=== PATIENT | male | born 1950 | race Caucasian/White ===

== ENCOUNTER 2017-04-10 10:05 | Observation (INO) | payer MEDICARE ==
[2017-04-10] VITALS (11 sets, daily range): BP systolic 118–181; BP diastolic 60–102; PULSE 72–96; RESP 16–20; TEMP 96.8–98.7; O2SAT 93–99
[~2017-04-10] VITALS: Ht 177.8 cm; Wt 102.3 kg
[2017-04-10] MEDS ORDERED: SODIUM CHLORIDE 0.9% FLUSH 10 ML FLUSH IVF PRN (10:30)
[2017-04-10] MEDS ORDERED: MORPHINE SULFATE 4 MG/ML INJ IV PUSH ONE (10:30)
[2017-04-10] MEDS ORDERED: ASPIRIN 81 MG CHEW TAB PO ONE (10:30)
[2017-04-10 10:38] LABS: AUTOMATED NEUTROPHIL # 3.5 TH/MM3 (1.8-7.7); BASOPHIL % 0.4 % (0.0-2.0); EOSINOPHIL # 0.1 TH/MM3 (0-0.4); EOSINOPHIL % 1.6 % (0.0-4.0); HEMATOCRIT 44.9 % (39.0-51.0); HEMOGLOBIN 15.7 GM/DL (13.0-17.0); LYMPH % 30.8 % (9.0-44.0); LYMPHOCYTE # 1.8 TH/MM3 (1.0-4.8); MEAN CELL VOLUME 89.2 FL (80.0-100.0); MEAN CORPUSCULAR HEMOGLOBIN 31.2 PG (27.0-34.0); MEAN CORPUSCULAR HGB CONC 34.9 % (32.0-36.0); MEAN PLATELET VOLUME 8.7 FL (7.0-11.0); MONO % 9.9 % (0.0-8.0); MONOCYTE # 0.6 TH/MM3 (0-0.9); NEUT % 57.3 % (16.0-70.0); PLATELET COUNT 153 TH/MM3 (150-450); RED BLOOD COUNT 5.03 MIL/MM3 (4.50-5.90); RED CELL DISTRIBUTION WIDTH 13.2 % (11.6-17.2)
[2017-04-10] MEDS: NITROGLYCERIN 0.4 MG SL 25 TABS/BTL SL SCH ×3 (10:40→11:12)
[2017-04-10 10:45] LABS: CHLORIDE 101 MEQ/L (98-107); SODIUM (NA) 137 MEQ/L (136-145)
[2017-04-10 10:48] LABS: BICARBONATE 27.3 MEQ/L (21.0-32.0); BLOOD UREA NITROGEN 20 MG/DL (7-18); CALCIUM 9.1 MG/DL (8.5-10.1); GLUCOSE,RANDOM 114 MG/DL (74-106); MAGNESIUM 1.8 MG/DL (1.5-2.5)
[2017-04-10 10:49] LABS: PROTHROMBIN TIME - PATIENT 10.5 SEC (9.8-11.6)
--- NOTE | 2017-04-10 10:49 | RADRPT ---
EXAM DATE/TIME: 04/10/2017 10:27 [facility] COMPARISON: No previous studies available for comparison. INDICATIONS : Chest pain. MEDICAL HISTORY : Hypertension. Renal calculi. SURGICAL HISTORY : Lithotripsy. ENCOUNTER: Initial ACUITY: 1 day PAIN SCORE: 6/10 LOCATION: chest FINDINGS: A single view of the chest demonstrates the lungs to be symmetrically aerated without evidence of mas s, infiltrate or effusion. The cardiomediastinal contours are unremarkable. Osseous structures are intact. CONCLUSION: The lungs are clear. Sam Raymundo MD on April 10, 2017 at 10:47 Board Certified Radiologist. This report was verified electronically.
[2017-04-10 10:52] LABS: GLOMERULAR FILTRATION RATE 67 ML/MIN (>89)
[2017-04-10 10:56] LABS: TROPONIN I LESS THAN 0.02 NG/ML (0.02-0.05)
--- NOTE | 2017-04-10 11:47 | PD ---
HPI . Chest pain Chief Complaint: Chest Pain Time Seen by Provider: 10:16 Travel History International Travel<30 days: No Contact w/Intl Traveler<30days: No Traveled to known affect area: No History of Present Illness HPI This patient presents with a chief complaint of chest pain. Onset has actually been several weeks ago. It is getting progressively worse. He states that the pain is constant but it does wax and wane. He describes a pressure in the center of his chest. He denies any other associated symptoms such as diaphoresis, nausea, lightheadedness or shortness of breath. He does report that his symptoms seem to be exacerbated with activity and relieved somewhat with rest. PFSH Past Medical History Hypertension: Yes Influenza Vaccination: No Past Surgical History Other Surgery: Yes (LITHOTRIPSY KIDNEY STONES) Social History Alcohol Use: Yes (OCC) Tobacco Use: No Substance Use: No Allergies-Medications (Allergen,Severity, Reaction): Coded Allergies: No Known Allergies (Unverified , 04/10/17) Review of Systems Except as stated in HPI: all other systems reviewed are Neg Cardiovascular: Positive: Chest Pain or Discomfort Respiratory: No: Shortness of Breath Gastrointestinal: No: Nausea, Vomiting Physical Exam Narrative GENERAL: Awake and alert. He is taking very deep breaths. SKIN: warm/dry. Normal color and turgor. HEAD: Normocephalic. Atraumatic. EYES: Pupils equal and round. No scleral icterus. No injection or drainage. ENT: No nasal bleeding or discharge. Mucous membranes pink and moist. NECK: Trachea midline. Full range of motion without pain.. CARDIOVASCULAR: Regular rate and rhythm. Heart sounds are normal. RESPIRATORY: No accessory muscle use. Clear to auscultation. Breath sounds equal bilaterally. Positive chest wall tenderness. GASTROINTESTINAL: Abdomen soft. Nontender. Bowel sounds present. Nondistended. Bili MUSCULOSKELETAL: No obvious deformities. NEUROLOGICAL: Awake and alert. No obvious cranial nerve deficits. Motor grossly within normal limits. Normal speech. PSYCHIATRIC: Appropriate mood and affect; insight and judgment normal. Data Data Last Documented VS Vital Signs Date Time Temp Pulse Resp B/P (MAP) Pulse Ox O2 Delivery O2 Flow Rate FiO2 04/10/17 11:53 76 16 138/76 (96) 97 Room Air 04/10/17 10:10 98.7 Orders Orders Basic Metabolic Panel (Bmp) (04/10/17 10:16) Complete Blood Count With Diff (04/10/17 10:16) Magnesium (Mg) (04/10/17 10:16) Prothrombin Time / Inr (Pt) (04/10/17 10:16) Act Partial Throm Time (Ptt) (04/10/17 10:16) Troponin I (04/10/17 10:16) Chest, Single Ap (04/10/17 10:16) Ecg Monitoring (04/10/17 10:16) Iv Access Insert/Monitor (04/10/17 10:16) Oximetry (04/10/17 10:16) Aspirin Chew (Aspirin Chew) (04/10/17 10:30) Morphine Inj (Morphine Inj) (04/10/17 10:30) Sodium Chloride 0.9% Flush (Ns Flush) (04/10/17 10:30) Nitroglycerin Sl (Nitrostat Sl) (04/10/17 10:30) Admit Order (Ed Use Only) (04/10/17 ) Contract Technician / Telemetry [email or web address] (04/10/17 12:32) Vital Signs (Adult) Q4H (04/10/17 12:32) Diet Npo (04/10/17 Lunch) Diet Heart Healthy (04/10/17 Lunch) Activity Oob With Assistance (04/10/17 12:32) Notify Dr: Other (04/10/17 12:32) Labs Laboratory Tests Test 04/10/17 10:25 White Blood Count 6.0 TH/MM3 Red Blood Count 5.03 MIL/MM3 Hemoglobin 15.7 GM/DL Hematocrit 44.9 % Mean Corpuscular Volume 89.2 FL Mean Corpuscular Hemoglobin 31.2 PG Mean Corpuscular Hemoglobin Concent 34.9 % Red Cell Distribution Width 13.2 % Platelet Count 153 TH/MM3 Mean Platelet Volume 8.7 FL Neutrophils (%) (Auto) 57.3 % Lymphocytes (%) (Auto) 30.8 % Monocytes (%) (Auto) 9.9 % Eosinophils (%) (Auto) 1.6 % Basophils (%) (Auto) 0.4 % Neutrophils # (Auto) 3.5 TH/MM3 Lymphocytes # (Auto) 1.8 TH/MM3 Monocytes # (Auto) 0.6 TH/MM3 Eosinophils # (Auto) 0.1 TH/MM3 Basophils # (Auto) 0.0 TH/MM3 CBC Comment DIFF FINAL Differential Comment Prothrombin Time 10.5 SEC Prothromb Time International Ratio 1.0 RATIO Activated Partial Thromboplast Time 32.1 SEC Blood Urea Nitrogen 20 MG/DL Creatinine 1.10 MG/DL Random Glucose 114 MG/DL Calcium Level 9.1 MG/DL Magnesium Level 1.8 MG/DL Sodium Level 137 MEQ/L Potassium Level 3.5 MEQ/L Chloride Level 101 MEQ/L Carbon Dioxide Level 27.3 MEQ/L Anion Gap 9 MEQ/L Estimat Glomerular Filtration Rate 67 ML/MIN Troponin I LESS THAN 0.02 NG/ML MDM Medical Decision Making Medical Screen Exam Complete: Yes Emergency Medical Condition: Yes Interpretation(s) EKG has a sinus rhythm with a ventricular rate of 90. No ST segment elevation or depression. Differential Diagnosis Differential diagnosis of chest pain includes but is not limited to musculoskeletal pain, pulmonary embolism, acute coronary syndrome, pneumonia, pleurisy Narrative Course This patient presented with chest pain she has had for the last week or so. It waxes and wanes. It is exacerbated with activity. Patient was placed on a monitor, an IV was started and routine labs were ordered. He was given an aspirin. He was also given a sublingual nitroglycerin. His pain improved with sublingual nitroglycerin. I have suggested admission to the chest pain center for further evaluation. The patient is very concerned about how much this will cost him. The patient has now agreed to stay for further evaluation of his chest pain. CBC & BMP Diagram 04/10/17 10:25 Calcium Level 9.1, Magnesium Level 1.8 trop < 0.02 Last Impressions Chest X-Ray 04/10/17 1016 Signed Impressions: Service Date/Time: Monday, April 10, 2017 10:27 - CONCLUSION: The lungs are clear. Sam Raymundo MD Physician Communication Physician Communication Dr. Weinberg Diagnosis Primary Impression: Chest pain Qualified Codes: R07.9 - Chest pain, unspecified Admitting Information Admitting Physician Requests: Observation Condition: Stable Hollie Campbell MD Apr 10, 2017 11:47
--- NOTE | 2017-04-10 15:23 | HHI.HP ---
[facility] No Primary Care Physician Admission Diagnosis Chest pain Diagnoses: Chief Complaint: Chest pain Travel History International Travel<30 Days: No Contact w/Intl Traveler <30 Da: No Traveled to Known Affected Are: No History of Present Illness This is a pleasant 66-year-old male patient with a known medical history of hypertension. Patient presented to the ED with complaints of epigastric/chest pain, patient states that this pain started several weeks ago post lithotripsy. He states that he first noticed a mid epigastric abdominal pain that was initially intermittent in nature, would come and go randomly at different times of day and characterized as sharp and shooting. Patient denies any alleviating or aggravating factors for this abdominal pain. He states that this abdominal pain has not let up but is actually got worse and has progressed to his midsternal chest. Patient describes this chest pain as pressure-like and "grabbing" in nature, he states that it started out intermittent, would come and go randomly without any known alleviating or aggravating factors, he denies any radiation of this chest pain, denies any associated nausea, vomiting, diaphoresis. Patient does admit to associated shortness of breath. He states that when given nitroglycerin in the ED pain had relieved some but has never completely gone away. Denies ever having this type of pain in the past. 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 Denies any previous stress testing. Patient denies any recent illness including fever, chills, cough, abdominal pain, nausea, vomiting, diarrhea or dysuria. Patient states he is on ciprofloxacin for 45 days post lithotripsy and is following with urology. Review of Systems Constitutional: DENIES: Fatigue, Fever, Chills Eyes: DENIES: Blurred vision, Diplopia Respiratory: DENIES: Cough Cardiovascular: COMPLAINS OF: Chest pain, Palpitations Gastrointestinal: COMPLAINS OF: Abdominal pain, DENIES: Black stools, Bloody stools, Constipation, Diarrhea, Nausea, Vomiting Neurologic: DENIES: Abnormal gait Psychiatric: DENIES: Anxiety Except as stated in HPI: all other systems reviewed are Neg Past Family Social History Past Medical History Hypertension History of kidney stones with lithotripsy Past Surgical History Lithotripsy Reported Medications Lisinopril HCTZ Ciprofloxacin 500 mg daily Allergies: Coded Allergies: No Known Allergies (Unverified , 04/10/17) Active Ordered Medications Current Medications Medications (Trade) Dose Ordered Sig/Ivet Route Start Time Stop Time Status Last Admin (NS Flush) 2 ml UNSCH PRN IVF 04/10/17 10:30 Family History Maternal medical history significant for stroke. Social History Patient denies any current previous tobacco use. Admits to occasional glass of wine. Denies any illicit drug use. Physical Exam Vital Signs Vital Signs Date Time Temp Pulse Resp B/P (MAP) Pulse Ox O2 Delivery O2 Flow Rate FiO2 04/10/17 14:00 97.7 79 20 149/102 (118) 93 04/10/17 13:50 04/10/17 13:02 79 16 118/77 (91) 97 Room Air 04/10/17 11:53 76 16 138/76 (96) 97 Room Air 04/10/17 11:18 88 16 125/60 (81) 95 Aerosol Mask 04/10/17 11:04 93 16 140/89 (106) 95 Room Air 04/10/17 10:55 88 16 148/98 (115) 96 Room Air 04/10/17 10:25 98 Room Air 04/10/17 10:10 98.7 96 20 181/99 (126) 98 Physical Exam GENERAL: Well-developed, well-nourished patient in [facility]. SKIN: Warm and dry. No rash. HEAD: Normocephalic. Atraumatic. EYES: Pupils equal and round. No scleral icterus. No injection or drainage. ENT: No nasal bleeding or discharge. Mucous membranes pink and moist. NECK: Supple. Trachea midline. CARDIOVASCULAR: Regular rate and rhythm. S1, S2 noted. No murmur appreciated. Mild reproducible chest pain to palpation of midsternal chest. RESPIRATORY: No accessory muscle use. Clear to auscultation. Breath sounds equal bilaterally. GASTROINTESTINAL: Abdomen soft, non-tender, nondistended. Normoactive bowel sounds x4. Negative Miguel sign MUSCULOSKELETAL: No obvious deformities. Extremities without clubbing, cyanosis , or edema. NEUROLOGICAL: Awake and alert. No obvious cranial nerve deficits. Motor grossly within normal limits. 5/5 muscle strength in bilateral upper and lower extremities. Normal speech. PSYCHIATRIC: Appropriate mood and affect; insight and judgment normal. Laboratory Laboratory Tests Test 04/10/17 10:25 White Blood Count 6.0 Red Blood Count 5.03 Hemoglobin 15.7 Hematocrit 44.9 Mean Corpuscular Volume 89.2 Mean Corpuscular Hemoglobin 31.2 Mean Corpuscular Hemoglobin Concent 34.9 Red Cell Distribution Width 13.2 Platelet Count 153 Mean Platelet Volume 8.7 Neutrophils (%) (Auto) 57.3 Lymphocytes (%) (Auto) 30.8 Monocytes (%) (Auto) 9.9 Eosinophils (%) (Auto) 1.6 Basophils (%) (Auto) 0.4 Neutrophils # (Auto) 3.5 Lymphocytes # (Auto) 1.8 Monocytes # (Auto) 0.6 Eosinophils # (Auto) 0.1 Basophils # (Auto) 0.0 CBC Comment DIFF FINAL Differential Comment Prothrombin Time 10.5 Prothromb Time International Ratio 1.0 Activated Partial Thromboplast Time 32.1 Blood Urea Nitrogen 20 Creatinine 1.10 Random Glucose 114 Calcium Level 9.1 Magnesium Level 1.8 Sodium Level 137 Potassium Level 3.5 Chloride Level 101 Carbon Dioxide Level 27.3 Anion Gap 9 Estimat Glomerular Filtration Rate 67 Troponin I LESS THAN 0.02 Result Diagram: 04/10/17 1025 04/10/17 1025 Imaging Last Impressions Chest X-Ray 04/10/17 1016 Signed Impressions: Service Date/Time: Monday, April 10, 2017 10:27 - CONCLUSION: The lungs are clear. Sam Raymundo MD Septic Shock Reassessment Septic shock perfusion: reassessment completed Caprini VTE Risk Assessment Caprini VTE Risk Assessment: Mod/High Risk (score >= 2) Caprini Risk Assessment Model Point Value = 1 Point Value = 2 Point Value = 3 Point Value = 5 Age 41-60 Minor surgery BMI > 25 kg/m2 Swollen legs Varicose veins or History of unexplained or recurrent spontaneous Oral contraceptives or hormone replacement Sepsis (< 1 month) Serious lung disease, including pneumonia (< 1 month) Abnormal pulmonary function Acute myocardial infarction Congestive heart failure (< 1 month) History of inflammatory bowel disease Medical patient at bed rest Age 61-74 Arthroscopic surgery Major open surgery (> 45 min) Laparoscopic surgery (> 45 min) Malignancy Confined to bed (> 72 hours) Immobilizing plaster cast Central venous access Age >= 75 History of VTE Family history of VTE Factor V Leiden Prothrombin [id number] Lupus anticoagulant Anticardiolipin antibodies Elevated serum homocysteine Heparin-induced thrombocytopenia Other congenital or acquired thrombophilia Stroke (< 1 month) Elective arthroplasty Hip, pelvis, or leg fracture Acute spinal cord injury (< 1 month) Prophylaxis Regimen Total Risk Factor Score Risk Level Prophylaxis Regimen 0-1 Low Early ambulation 2 Moderate Order ONE of the following: *Sequential Compression Device (SCD) *Heparin 5000 units SQ BID 3-4 Higher Order ONE of the following medications: *Heparin 5000 units SQ TID *Enoxaparin/Lovenox 40 mg SQ daily (WT < 150 kg, CrCl > 30 mL/min) *Enoxaparin/Lovenox 30 mg SQ daily (WT < 150 kg, CrCl > 10-29 mL/min) *Enoxaparin/Lovenox 30 mg SQ BID (WT < 150 kg, CrCl > 30 mL/min) AND/OR *Sequential Compression Device (SCD) 5 or more Highest Order ONE of the following medications: *Heparin 5000 units SQ TID (Preferred with Epidurals) *Enoxaparin/Lovenox 40 mg SQ daily (WT < 150 kg, CrCl > 30 mL/min) *Enoxaparin/Lovenox 30 mg SQ daily (WT < 150 kg, CrCl > 10-29 mL/min) *Enoxaparin/Lovenox 30 mg SQ BID (WT < 150 kg, CrCl > 30 mL/min) AND *Sequential Compression Device (SCD) Assessment and Plan Assessment and Plan This is a pleasant 66-year-old male patient with a known medical history of hypertension. Patient presented to the ED with complaints of chest pain, patient states that this pain started several weeks ago post lithotripsy. Chest pain suspect secondary to musculoskeletal nature versus epigastric cause vs rule out ACS Patient has been admitted to the chest pain center for observation, serial EKGs and serial troponins have been ordered for ruling out ACS purposes. Initial troponin flat. Continue to monitor trend. EKG reviewed showing sinus rhythm, heart rate controlled, no ST changes. Patient on cardiac telemetry, monitor for any arrhythmias. Chest pain is currently still present, rated a 4 out of 10 on pain scale, characterized as grabbing and squeezing in nature. Nitroglycerin provided some relief in the ED. Morphine IV available as needed as needed for pain scale. Started on daily aspirin. Nitroglycerin sublingual as needed. Will give one time dose of Naproxen for possible musculoskeletal cause of chest pain, mild tenderness to midsternal chest palpation. Will also give GI cocktail for possible GERD related cause of chest pain. Assess response. Chest x-ray reviewed showing no acute cardiopulmonary disease. CBC and BMP reviewed and essentially unremarkable. If ACS ruled out with serial EKGs and serial troponins patient will undergo a Lexiscan in the a.m. to rule out any further ischemia. Patient is stable at this time and agreeable to the plan. Hypertension, chronic: Requested update to medication reconciliation. Will restart medications from home. Continue to monitor BP trends Recent lithotripsy for history of kidney stones Reports of elevated PSA On chronic Cipro x 45 days. Will restart home medication dose. Supportive care. DVT prophylaxis: SCDs. Heparin. Maribel Loo Apr 10, 2017 15:23
[2017-04-10] MEDS ORDERED: ALUMINUM/MAGNESIUM/SIMETH 30 ML CUP PO ONE (15:45)
[2017-04-10] MEDS ORDERED: NAPROXEN 500 MG TAB PO ONE (15:45)
[2017-04-10] MEDS ORDERED: MORPHINE SULFATE 2 MG/ML INJ IM PRN (15:45)
[2017-04-10] MEDS ORDERED: NITROGLYCERIN 0.4 MG SL 25 TABS/BTL SL PRN (15:45)
[2017-04-10 16:30] LABS: TROPONIN I LESS THAN 0.02 NG/ML (0.02-0.05)
--- NOTE | 2017-04-10 16:36 | EKG ---
Date Performed: 04/10/2017 Time Performed: 10:11:29 PTAGE: 66 years EKG: Sinus rhythm BORDERLINE LEFT AXIS DEVIATION NO PREVIOUS TRACING DOCTOR: Lucio Keller Interpretating Date/Time 04/10/2017 16:33:52
[2017-04-10] MEDS: ACETAMINOPHEN 325 MG TAB PO PRN (17:37)
[2017-04-10 19:14] LABS: TROPONIN I LESS THAN 0.02 NG/ML (0.02-0.05)
[2017-04-10] MEDS: HEPARIN SODIUM - SQ 10,000 UNITS/ML VIAL SQ SCH (20:11)
--- NOTE | 2017-04-10 23:03 | EKG ---
Date Performed: 04/10/2017 Time Performed: 18:32:24 PTAGE: 66 years EKG: Sinus rhythm LEFT AXIS DEVIATION ABNORMAL ECG PREVIOUS TRACING : 04/10/2017 15.43 No significant change from previous tracing noted. DOCTOR: Lucio Keller Interpretating Date/Time 04/10/2017 23:02:32
--- NOTE | 2017-04-10 23:16 | EKG ---
Date Performed: 04/10/2017 Time Performed: 15:43:14 PTAGE: 66 years EKG: Sinus rhythm BORDERLINE LEFT AXIS DEVIATION BORDERLINE ECG PREVIOUS TRACING : 04/10/2017 10.11 No significant change from previous tracing noted. DOCTOR: Lucio Keller Interpretating Date/Time 04/10/2017 23:14:28
[2017-04-11] VITALS (8 sets, daily range): BP systolic 129–150; BP diastolic 75–93; PULSE 64–93; RESP 20; TEMP 96–96.9; O2SAT 93–98
[2017-04-11] MEDS: HEPARIN SODIUM - SQ 10,000 UNITS/ML VIAL SQ SCH ×2 (08:05→21:00)
[2017-04-11] MEDS ORDERED: CIPROFLOXACIN 500 MG TAB PO SCH (09:00)
[2017-04-11] MEDS ORDERED: ASPIRIN 81 MG CHEW TAB CHEW SCH (09:00)
[2017-04-11] MEDS ORDERED: PANTOPRAZOLE SOD 40 MG DELAYED RELEASE TAB PO SCH (09:00)
[2017-04-11] MEDS ORDERED: REGADENOSON INJ 0.4 MG/5 ML SYR IV ONE (09:57)
--- NOTE | 2017-04-11 10:54 | RADRPT ---
EXAM DATE/TIME: 04/11/2017 09:09 [facility] COMPARISON: No previous studies available for comparison. INDICATIONS : Substernal chest pain. Angina. DOSE: 35 mCi Tc99m Myoview at stress. 11 mCi Tc99m Myoview at rest. 0.4 mg Lexiscan STRESS SYMPTOMS: Facial flush and bilateral shoulder pressure. EJECTION FRACTION: 61% MEDICAL HISTORY : Hypertension. SURGICAL HISTORY : None. ENCOUNTER: Initial ACUITY: 1 day PAIN SCALE: 5/10 LOCATION: Substernal chest TECHNIQUE: The patient underwent pharmacologic stress with infusion of prescribed dose. Continuous ECG tracing was monitored during stress. Gated SPECT imaging was performed after stress and conventional SPECT i maging was performed at rest. The examination was performed on a SPECT/CT scanner, both attenuation and non-corrected datasets were reviewed. FINDINGS: DISTRIBUTION: The maximum perfused segment at stress is in the anterior wall. PERFUSION STUDY: There is decreased activity at the basilar portion of the lateral wall on the stress images compared to the rest images in the order of 10-20% which is borderline for mild ischemia. There some minimal d ecreased uptake on the stress images compared to the rest images at the apical upper septum in the or [place] of 10% likely within normal variation. GATED STUDY: There is intact wall motion and thickening without hypokinetic or dyskinetic segments. CONCLUSION: Borderline area of ischemia at the basilar lateral wall. RISK CATEGORY: Low (<1% Annual Mortality Rate) Regan Virk MD on April 11, 2017 at 10:44 Board Certified Radiologist. This report was verified electronically.
--- NOTE | 2017-04-11 12:51 | HHI.PR ---
Subjective Remarks Follow-up chest pain. Patient seen and examined, lying in bed status post Lexiscan. 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 Keller updated in consulted to see patient today. No plan for cardiac catheterization today, wait final cardiology recommendations. Patient denies any chest pain. States he is feeling much improved. Vital signs are stable. Continue to monitor on telemetry. Objective Vitals Vital Signs Date Time Temp Pulse Resp B/P (MAP) Pulse Ox O2 Delivery O2 Flow Rate FiO2 04/11/17 11:06 97 04/11/17 07:50 96.0 74 20 129/93 (105) 98 04/11/17 04:00 96.0 64 20 132/75 (94) 98 04/11/17 00:00 96.5 69 20 133/84 (100) 98 04/10/17 21:00 99 21 04/10/17 20:00 81 04/10/17 20:00 96.8 74 20 156/95 (115) 96 04/10/17 16:00 97.0 72 20 148/101 (117) 98 04/10/17 16:00 99 21 04/10/17 14:00 97.7 79 20 149/102 (118) 93 04/10/17 13:50 04/10/17 13:02 79 16 118/77 (91) 97 Room Air I/O 04/10/17 04/10/17 04/10/17 04/11/17 04/11/17 04/11/17 06:59 14:59 22:59 06:59 14:59 22:59 Intake Total 10 ml Balance 10 ml Intake Oral 0 ml IV Total 10 ml # Voids 5 Result Diagram: 04/10/17 1025 04/10/17 1025 Imaging Last Impressions Myocardial Perfusion Scan Nuc Med 04/11/17 0000 Signed Impressions: Service Date/Time: Tuesday, April 11, 2017 09:09 - CONCLUSION: Borderline area of ischemia at the basilar lateral wall. RISK CATEGORY: Low (<1%% Annual Mortality Rate) Regan Virk MD Chest X-Ray 04/10/17 1016 Signed Impressions: Service Date/Time: Monday, April 10, 2017 10:27 - CONCLUSION: The lungs are clear. Sam Raymundo MD Objective Remarks GENERAL: Well-developed, obese male patient in [facility]. SKIN: Warm and dry. No rash. HEAD: Normocephalic. Atraumatic. EYES: Pupils equal and round. No scleral icterus. No injection or drainage. ENT: No nasal bleeding or discharge. Mucous membranes pink and moist. NECK: Supple. Trachea midline. CARDIOVASCULAR: Regular rate and rhythm. S1, S2 noted. No murmur appreciated. No chest pain to palpation RESPIRATORY: No accessory muscle use. Clear to auscultation. Breath sounds equal bilaterally. GASTROINTESTINAL: Abdomen soft, non-tender, nondistended. Normoactive bowel sounds x4. MUSCULOSKELETAL: No obvious deformities. Extremities without clubbing, cyanosis , or edema. NEUROLOGICAL: Awake and alert. No obvious cranial nerve deficits. Motor grossly within normal limits. 5/5 muscle strength in bilateral upper and lower extremities. Normal speech. PSYCHIATRIC: Appropriate mood and affect; insight and judgment normal. A/P Assessment and Plan This is a pleasant 66-year-old male patient with a known medical history of hypertension. Patient presented to the ED with complaints of chest pain, patient states that this pain started several weeks ago post lithotripsy. Chest pain suspect secondary to musculoskeletal nature versus epigastric cause vs rule out ACS Patient has been admitted to the chest pain center for observation, serial EKGs and serial troponins have been ordered for ruling out ACS purposes. Troponins flat. EKG reviewed showing sinus rhythm, heart rate controlled, no ST changes. Patient on cardiac telemetry, monitor for any arrhythmias. Chest pain resolved. Morphine IV available as needed as needed for pain scale. Continue aspirin. nitroglycerin sublingual as needed. Naproxen given yesterday, minimal relief. GI cocktail given yesterday, did not show any relief. Chest x-ray reviewed showing no acute cardiopulmonary disease. CBC and BMP reviewed and essentially unremarkable. Patient underwent cardiac Abena scan this morning, mild ischemia noted in the lateral wall. Dr. Keller consulted and appreciate further recs and updates. Hypertension, chronic: Requested update to medication reconciliation. Will restart medications from home. Continue to monitor BP trends Recent lithotripsy for history of kidney stones Reports of elevated PSA On chronic Cipro x 45 days. Will restart home medication dose. Supportive care. DVT prophylaxis: SCDs. Heparin. Maribel Loo Apr 11, 2017 12:51
[2017-04-11] MEDS: ACETAMINOPHEN 325 MG TAB PO PRN (13:27)
[2017-04-11] MEDS ORDERED: POTASSIUM CHLORIDE 10 MEQ CONTROLLED RELEASE TAB PO SCH (14:00)
[2017-04-11] MEDS ORDERED: LISINOPRIL 10 MG TAB PO SCH (14:00)
[2017-04-11] MEDS ORDERED: HYDROCHLOROTHIAZIDE 12.5 MG CAP PO SCH (14:00)
--- NOTE | 2017-04-11 16:40 | TR ---
Date Performed: 04/11/2017 Time Performed: 09:39:48 DOCTOR: Aidan Scales DRUG LIST: CLINICAL HISTORY: CHEST PAIN REASON FOR TEST: Chest pain REASON FOR ENDING: OBSERVATION: CONCLUSION: Lexiscan stress test was performed under standard four minute protocol. Radionuclide was injected one minute prior to ending the test. No electrocardiographic abormalities were present to suggest ischemia. Nuclear imaging and interpretation are pending. COMMENTS:
--- NOTE | 2017-04-11 17:37 | MB ---
cc: JASON OCONNELL M.D. DATE OF CONSULTATION: 04/11/2017 REASON FOR CONSULTATION: Chest pain, abnormal nuclear stress test. HISTORY OF PRESENT ILLNESS: The patient is a 66-year-old white male with a history of kidney stones status post lithotripsy about four weeks ago, history of hypertension who was in his usual state of health up until about four weeks ago when he began to experience a midline abdominal discomfort. Shortly thereafter he developed a right parasternal chest "pressure". This pressure has been present most of the last three to four weeks in a constant fashion. There has been no associated shortness of breath, nausea or diaphoresis. The chest pain is not pleuritic. He denies any left-sided chest discomforts. He also denies dyspnea, dizziness, syncope, near-syncope, palpitations, paroxysmal nocturnal dyspnea, pedal edema. PAST MEDICAL HISTORY: 1. Nephrolithiasis. 2. Hypertension. CARDIAC MEDICATIONS AT HOME: Lisinopril. ALLERGIES: NO KNOWN DRUG ALLERGIES. FAMILY HISTORY: There is no significant family history of early myocardial infarction. SOCIAL HISTORY: The patient denies alcohol or tobacco abuse. REVIEW OF SYSTEMS: Review of systems as in the history of present illness otherwise negative or noncontributory. He also denies headache, visual changes, unilateral weakness or numbness, abdominal pain, melena, dyspepsia. PHYSICAL EXAMINATION: VITAL SIGNS: On physical examination, his blood pressure 150/88 with a pulse of 86, respirations 20. GENERAL: In general, he is a well-developed, well-nourished white male in no acute distress. HEAD, EYES, EARS, NOSE, THROAT: On HEENT examination jugular venous pressure is normal. Carotid pulses are 2+ bilaterally and without bruits. CHEST: Examination of the chest reveals clear lung flower. CARDIAC: On cardiac examination he has a regular rhythm and rate without S3, S4 or murmur. ABDOMEN: On abdominal examination, he has a soft, nontender abdomen. Bowel sounds are present. There is no definite hepatosplenomegaly. EXTREMITIES: Examination of extremities reveals no clubbing, cyanosis or edema. LABORATORY DATA: Includes normal CBC, negative cardiac enzymes, BUN 20, creatinine 1.10, potassium 3.5. IMAGING STUDIES: Chest x-ray shows no acute disease. IMPRESSION: Exceedingly atypical symptoms for myocardial ischemia in this 66-year-old white male with a history of hypertension, nephrolithiasis. Despite fairly constant right-sided chest discomfort for the last three to four weeks, cardiac enzymes are negative for myocardial infarction. EKG is normal. His nuclear stress test images have been reviewed. There is questionable basal lateral ischemia. The area of question is very small. It is difficult to know what to do with this abnormal nuclear stress test with a very low pretest probability that his presenting symptoms were due to myocardial ischemia. His only risk factor for coronary artery disease is hypertension. RECOMMENDATIONS: 1. Check a coronary CT angiogram. Unless multivessel coronary artery disease is demonstrated, would treat him medically with daily aspirin, beta joce therapy. 2. Will follow up as needed. If his coronary CT angiogram is abnormal, he can follow up with me as an outpatient. MD CHRISTOPH Marrufo/CAREY /1:53 PM /5:24 PM SOFIA
[2017-04-12] VITALS: BP 104/60; PULSE 94; RESP 20; TEMP 96.8; O2SAT 97
[2017-04-12 04:00] VITALS: BP 104/73; PULSE 80; RESP 20; TEMP 96.4; O2SAT 96
[2017-04-12 08:00] VITALS: BP 137/76; PULSE 92; RESP 16; TEMP 97.6; O2SAT 98
[2017-04-12] MEDS ORDERED: ISOS30TA3 PO (08:22)
[2017-04-12] MEDS ORDERED: METO25TA3 PO (08:22)
[2017-04-12] MEDS ORDERED: ASPI81 CHEW (08:22)
--- NOTE | 2017-04-12 08:22 | HHI.PR ---
Subjective Remarks Follow-up chest pain. Patient seen and examined, patient belligerent and upset with delay of CTA ordered. Unable to do on weekends. Spoke to Dr. Sexton's cardiology, who agrees to discharge patient today on Imdur, aspirin and metoprolol and to follow-up in office with him this week. CTA will be done outpatient. Patient states chest pain has resolved. No new symptoms or complaints. Vital signs are stable overnight. Objective Vitals Vital Signs Date Time Temp Pulse Resp B/P (MAP) Pulse Ox O2 Delivery O2 Flow Rate FiO2 04/12/17 08:00 97.6 92 16 137/76 (96) 98 04/12/17 04:00 96.4 80 20 104/73 (83) 96 04/12/17 00:00 96.8 94 20 104/60 (75) 97 04/11/17 22:00 95 21 04/11/17 20:00 96.4 93 20 132/80 (97) 96 04/11/17 20:00 82 04/11/17 15:50 96.9 78 20 149/93 (111) 98 04/11/17 11:50 96.9 86 20 150/88 (108) 93 04/11/17 11:06 97 I/O 04/11/17 04/11/17 04/11/17 04/12/17 04/12/17 04/12/17 07:00 15:00 23:00 07:00 15:00 23:00 Intake Total 10 ml 720 ml 0 ml Balance 10 ml 720 ml 0 ml Intake Oral 0 ml 720 ml 0 ml IV Total 10 ml # Voids 5 3 2 # Bowel Movements 1 Result Diagram: 04/10/17 1025 04/10/17 1025 Imaging Last Impressions Myocardial Perfusion Scan Nuc Med 04/11/17 0000 Signed Impressions: Service Date/Time: Tuesday, April 11, 2017 09:09 - CONCLUSION: Borderline area of ischemia at the basilar lateral wall. RISK CATEGORY: Low (<1%% Annual Mortality Rate) Regan Virk MD Chest X-Ray 04/10/17 1016 Signed Impressions: Service Date/Time: Monday, April 10, 2017 10:27 - CONCLUSION: The lungs are clear. Sam Raymundo MD Objective Remarks GENERAL: Well-developed, obese male patient in NAD. SKIN: Warm and dry. No rash. HEAD: Normocephalic. Atraumatic. EYES: Pupils equal and round. No scleral icterus. No injection or drainage. ENT: No nasal bleeding or discharge. Mucous membranes pink and moist. NECK: Supple. Trachea midline. CARDIOVASCULAR: Regular rate and rhythm. S1, S2 noted. No murmur appreciated. No chest pain to palpation RESPIRATORY: No accessory muscle use. Clear to auscultation. Breath sounds equal bilaterally. GASTROINTESTINAL: Abdomen soft, non-tender, nondistended. Normoactive bowel sounds x4. MUSCULOSKELETAL: No obvious deformities. Extremities without clubbing, cyanosis , or edema. NEUROLOGICAL: Awake and alert. No obvious cranial nerve deficits. Motor grossly within normal limits. 5/5 muscle strength in bilateral upper and lower extremities. Normal speech. PSYCHIATRIC: Appropriate mood and affect; insight and judgment normal. A/P Assessment and Plan This is a [id number] male patient with a known medical history of hypertension. Patient presented to the ED with complaints of chest pain, patient states that this pain started several weeks ago post lithotripsy. Chest pain suspect secondary to musculoskeletal nature versus epigastric cause vs rule out ACS Patient has been admitted to the chest pain center for observation, serial EKGs and serial troponins have been ordered for ruling out ACS purposes. Troponins flat. EKG reviewed showing sinus rhythm, heart rate controlled, no ST changes. Patient on cardiac telemetry, monitor for any arrhythmias. Chest pain resolved. Morphine IV available as needed as needed for pain scale. Continue aspirin. nitroglycerin sublingual as needed. Naproxen given yesterday, minimal relief. GI cocktail given yesterday, did not show any relief. Chest x-ray reviewed showing no acute cardiopulmonary disease. CBC and BMP reviewed and essentially unremarkable. Patient underwent cardiac Abena scan mild ischemia noted in the lateral wall. Dr. Keller consulted with recommendations to undergo a CTA to look at coronary arteries. Delayed test due to inability to perform on weekends. Dr. Keller recommends outpatient CTA and follow-up in his office. Discharged on [place], metoprolol and aspirin. Hypertension, chronic: Imdur and metoprolol Recent lithotripsy for history of kidney stones Reports of elevated PSA On chronic Cipro x 45 days. Continue on discharge. . S DVT prophylaxis: SCDs. Heparin. Maribel Loo Apr 12, 2017 08:22
--- NOTE | 2017-04-12 08:23 | HHI.DCPOC ---
Discharge Care Plan Diagnosis: (1) Chest pain (2) Hypertension Goals to Promote Your Health * To prevent worsening of your condition and complications * To maintain your health at the optimal level Directions to Meet Your Goals Take your medications as prescribed Follow your dietary instruction Follow activity as directed Keep your appointments as scheduled Take your immunizations and boosters as scheduled If your symptoms worsen call your PCP, if no PCP go to Urgent Care Center or Emergency Room Smoking is Dangerous to Your Health. Avoid second hand smoke Call the 24-hour hour crisis hotline for domestic abuse at Maribel Loo Apr 12, 2017 08:23
== END 2017-04-12 08:52 | disposition home or self-care (01) ==
LOC: PHED 10:05 → PHEDA 12:33 → PH3A 13:54
PROVIDERS: ADMIT Hospitalist; ATTEND Hospitalist
DX: R07.9 Chest pain, unspecified (principal); I10 Essential (primary) hypertension; R10.13 Epigastric pain; R06.02 Shortness of breath; R97.20 Elevated prostate specific antigen [PSA]; Z79.899 Other long term (current) drug therapy; R94.31 Abnormal electrocardiogram [ECG] [EKG]; I25.9 Chronic ischemic heart disease, unspecified
CPT/HCPCS: 71045; 78452; 80048; 82550; 83735; 84484; 85025; 85610; 85730; 93005; 93017; 96374; 99285; A9502; G0378; J2270; J2785